=== PATIENT | female | born 1960 | race Caucasian/White ===

== ENCOUNTER 2017-07-02 05:58 | Day surgery (SDC) | payer OTHER ==
[~2017-07-02 05:58] MED LIST: ASA81 MG PO; EFFEXOR XR75 MG PO; TAMOXIFEN CITRA20 MG PO
== END 2017-07-02 11:45 | disposition home or self-care (01) ==
LOC: CIR.AMB 05:58
DX: N72 Inflammatory disease of cervix uteri (principal)

== ENCOUNTER 2018-12-07 14:00 | Outpatient (CLI) | payer OTHER | END 2018-12-07 14:11 | disposition home or self-care (01) | LOC: RAD 14:00 | DX: R10.84 Generalized abdominal pain (principal); N39.0 Urinary tract infection, site not specified ==

== ENCOUNTER 2021-02-01 06:00 | Day surgery (SDC) | payer OTHER | END 2021-02-01 10:10 | disposition home or self-care (01) | LOC: AMB-ENDOS 06:00 | PROVIDERS: ATTEND Colon & Rectal Surgery | DX: D12.0 Benign neoplasm of cecum (principal); K64.1 Second degree hemorrhoids; Z20.822 Contact with and (suspected) exposure to COVID-19 ==